=== PATIENT | female | born 1955 | race Caucasian/White ===

== ENCOUNTER 2019-02-02 13:00 | Emergency (ER) | payer MEDICAID ==
[~2019-02-02] VITALS: Ht 154.9 cm; Wt 50.0 kg
[~2019-02-02 13:00] MED LIST: ASPI-611 PO; ATOR20TA66 PO; CLON-371 PO; CLON-528 PO; CLOP75TA15 PO; LEVO75TA7 PO; LISI-600 PO; METO25TA6 PO; NICO1PAT36 TOP; NITR0.4T51 SL
[2019-02-02] MEDS ORDERED: CLOP75TA35 (13:38)
[2019-02-02] MEDS ORDERED: LISI40TA4 (13:38)
[2019-02-02] MEDS ORDERED: LEVO75TA7 PO (13:40)
[2019-02-02 14:15] LABS: BASOPHILS # (AUTO) 0.1 X10'3 (0-0.2); BASOPHILS % (AUTO) 1.1 % (0-1); EOSINOPHILS # (AUTO) 0.3 X10'3 (0-0.9); EOSINOPHILS % (AUTO) 4.3 % (0-6); HEMATOCRIT 41.3 % (35.0-45.0); HEMOGLOBIN 14.3 g/dl (12.0-16.0); LYMPHOCYTES # (AUTO) 2.1 X10'3 (1.1-4.8); LYMPHOCYTES % (AUTO) 25.9 % (21-51); MEAN CORPUSCULAR HEMOGLOBIN 34.9 PG (27.0-31.0); MEAN CORPUSCULAR HGB CONC 34.5 g/dL (33.0-36.5); MEAN CORPUSCULAR VOLUME 101.2 FL (78-98); MEAN PLATELET VOLUME 7.9 FL (7.4-10.4); MONOCYTES # (AUTO) 0.8 X10'3 (0-0.9); NEUTROPHILS # (AUTO) 4.7 X10'3 (1.8-7.7); NEUTROPHILS % (AUTO) 58.7 % (42-75); PLATELET COUNT 292 X10'3 (140-440); RED BLOOD COUNT 4.08 X10'6 (4.20-5.60); RED CELL DISTRIBUTION WIDTH 15.2 % (11.5-14.5)
[2019-02-02 14:29] LABS: ALANINE AMINOTRANSFERASE 47 U/L (12-78); ALBUMIN 3.5 G/DL (3.4-5.0); ALBUMIN/GLOBULIN RATIO 0.9 (1.1-1.5); ALKALINE PHOSPHATASE 98 IU/L (46-116); ANION GAP 9 (8-16); ASPARTATE AMINO TRANSFERASE 69 U/L (10-37); BILIRUBIN,TOTAL 0.4 MG/DL (0.1-1.0); BLOOD UREA NITROGEN 15 MG/DL (7-18); BUN/CREATININE RATIO 18.1 (6.6-38.0); CALCIUM 9.7 MG/DL (8.5-10.1); CHLORIDE 103 MMOL/L (99-107); CREATININE 0.83 MG/DL (0.40-0.90); GLUCOSE 85 MG/DL (70-104); MAGNESIUM 1.7 MG/DL (1.5-2.4); POTASSIUM 3.7 MMOL/L (3.5-5.1); SODIUM 142 MMOL/L (135-145); TOTAL CARBON DIOXIDE 29.9 MMOL/L (24-32); TOTAL PROTEIN 7.5 G/DL (6.4-8.2); eGFR 69 ML/MIN
[2019-02-02 14:32] LABS: PARTIAL THROMBOPLASTIN TIME 29 SECONDS (22-32)
--- NOTE | 2019-02-02 14:50 | NUR ---
Pt transported to CT scan via gurney with the side rails raised.
[2019-02-02] MEDS ORDERED: iohexol 350MG/ML 100ml bottle IV ONE (14:55)
[2019-02-02] MEDS ORDERED: iohexol 350 MG/ML 50ML vial IV ONE (14:56)
--- NOTE | 2019-02-02 17:19 | NUR ---
Pt's blood pressures and heart rate obtained in all four extremities. Dr. Snider given the results. Vascular is in route to the hospital to complete the vascular studies for the ankle brachial index. Pt is requesting something to help her calm down. Dr. Snider made aware of the patient's request.
--- NOTE | 2019-02-02 17:58 | NUR ---
Health Insurance Sales Agent is with the patient completing WAYNE testing. Pt is awaiting admission orders and further evaluation. Pt's blood pressure remains elevated and provider is aware.
[2019-02-02 19:59] VITALS: BP 199/106
== END 2019-02-02 20:03 | disposition home or self-care (01) ==
LOC: ER 13:00
DX: T82.858A Stenosis of other vascular prosthetic devices, implants and grafts, initial encounter (principal); I71.4 Abdominal aortic aneurysm, without rupture; M79.652 Pain in left thigh; I25.10 Atherosclerotic heart disease of native coronary artery without angina pectoris; I10 Essential (primary) hypertension; I25.2 Old myocardial infarction; Z98.61 Coronary angioplasty status; Z90.710 Acquired absence of both cervix and uterus; Z98.890 Other specified postprocedural states; Z88.0 Allergy status to penicillin; Z79.899 Other long term (current) drug therapy
CPT/HCPCS: 36415; 75635; 80053; 83735; 85025; 85610; 85730; 93922; 99285; Q9967

== ENCOUNTER 2019-04-16 06:41 | Day surgery (SDC) | payer MEDICARE ==
[2019-04-16] VITALS (9 sets, daily range): BP systolic 105–208; BP diastolic 59–119
[~2019-04-16] VITALS: Ht 157.5 cm; Wt 45.7 kg
[~2019-04-16 06:41] MED LIST changes: -ASPI-611 PO; -ATOR20TA66 PO; -CLON-371 PO; -CLON-528 PO; -CLOP75TA15 PO; +CLOP75TA35; -LISI-600 PO; +LISI40TA4; -METO25TA6 PO; -NICO1PAT36 TOP
[2019-04-16] MEDS ORDERED: LISI40TA4 PO (07:10)
[2019-04-16] MEDS ORDERED: CETI-90 PO (07:10)
[2019-04-16] MEDS ORDERED: METO25TA6 PO (07:10)
[2019-04-16] MEDS ORDERED: normal saline 1000ml 1,000 ML IV SCH ×2 (07:10→11:34)
[2019-04-16 07:46] LABS: BASOPHILS # (AUTO) 0.1 X10'3 (0-0.2); BASOPHILS % (AUTO) 1.3 % (0-1); EOSINOPHILS # (AUTO) 0.4 X10'3 (0-0.9); EOSINOPHILS % (AUTO) 4.5 % (0-6); HEMATOCRIT 39.9 % (35.0-45.0); HEMOGLOBIN 13.6 g/dl (12.0-16.0); LYMPHOCYTES # (AUTO) 1.8 X10'3 (1.1-4.8); LYMPHOCYTES % (AUTO) 21.4 % (21-51); MEAN CORPUSCULAR HEMOGLOBIN 35.2 PG (27.0-31.0); MEAN CORPUSCULAR VOLUME 103.5 FL (78-98); MEAN PLATELET VOLUME 7.8 FL (7.4-10.4); MONOCYTES % (AUTO) 11.5 % (2-12); NEUTROPHILS # (AUTO) 5.3 X10'3 (1.8-7.7); NEUTROPHILS % (AUTO) 61.3 % (42-75); PLATELET COUNT 285 X10'3 (140-440); RED BLOOD COUNT 3.85 X10'6 (4.20-5.60); RED CELL DISTRIBUTION WIDTH 15.6 % (11.5-14.5); WHITE BLOOD COUNT 8.6 X10'3 (4.5-11.0)
[2019-04-16 07:57] LABS: ALBUMIN 3.3 G/DL (3.4-5.0); ANION GAP 8 (8-16); BLOOD UREA NITROGEN 7 MG/DL (7-18); BUN/CREATININE RATIO 9.9 (6.6-38.0); CALCIUM 8.9 MG/DL (8.5-10.1); CHLORIDE 106 MMOL/L (99-107); CREATININE 0.71 MG/DL (0.40-0.90); GLUCOSE 70 MG/DL (70-104); SODIUM 144 MMOL/L (135-145); TOTAL CARBON DIOXIDE 29.6 MMOL/L (24-32); eGFR 83 ML/MIN
[2019-04-16] MEDS ORDERED: LIDOcaine 1% (10mg/ml) 2ml vial SQ ONE (08:00)
[2019-04-16] MEDS ORDERED: midazolam 2 mg/2 ml injection IV PRN (08:00)
[2019-04-16] MEDS ORDERED: fentaNYL/PF 50MCG/1 ML 2ML syringe IV PRN (08:00)
[2019-04-16] MEDS ORDERED: potassium Cl 20 mEq SR tablet PO PRN (08:05)
[2019-04-16] MEDS ORDERED: potassium CL 10mEq/100ml bag 100 ML IV PRN (08:05)
[2019-04-16] MEDS ORDERED: hydrALAZINE 20mg/ml inj. IV ONE (08:05)
[2019-04-16] MEDS ORDERED: K and/or MAG REPLACEMENT MC SCH (08:05)
[2019-04-16] MEDS: potassium Cl 20 mEq SR tablet PO PRN ×2 (08:19→13:57)
[2019-04-16] MEDS ORDERED: iohexol 300mg/ml 100ml inj. ONE (08:45)
[2019-04-16] MEDS ORDERED: LIDOcaine 1%/PF 5ML 10 MG/ML VIAL ONE (08:45)
[2019-04-16] MEDS ORDERED: heparin 1,000 UNITS/NS 500ml 500 ML ONE ×2 (08:46→10:37)
[2019-04-16] MEDS ORDERED: LORazepam 2 mg/ml vial IV ONE ×2 (08:55)
[2019-04-16] MEDS ORDERED: diphenhydrAMINE 50 mg/ml inj ONE ×2 (08:57→09:11)
[2019-04-16] MEDS ORDERED: diphenhydrAMINE 50 mg/ml inj IV ONE (09:00)
[2019-04-16] MEDS ORDERED: morphine 2 MG/ML inj. syringe IV PRN (09:00)
[2019-04-16] MEDS ORDERED: morphine 2 MG/ML inj. syringe ONE ×3 (09:05→09:37)
[2019-04-16] MEDS ORDERED: midazolam 2 mg/2 ml injection ONE ×2 (09:25→09:38)
[2019-04-16] MEDS ORDERED: heparin 1,000unit/ml 10ml vial 10 ML ONE (09:48)
[2019-04-16] MEDS ORDERED: morphine 4 MG/ML inj SYRINge ONE (10:53)
== END 2019-04-16 14:25 | disposition home or self-care (01) ==
LOC: SSTAY O 06:41
PROVIDERS: ATTEND Radiology Vascular & Interventional Radiology
DX: I70.212 Atherosclerosis of native arteries of extremities with intermittent claudication, left leg (principal); I10 Essential (primary) hypertension; F17.210 Nicotine dependence, cigarettes, uncomplicated; Z88.0 Allergy status to penicillin; Z79.01 Long term (current) use of anticoagulants; Z79.899 Other long term (current) drug therapy; Z72.89 Other problems related to lifestyle; Z90.710 Acquired absence of both cervix and uterus; Z98.890 Other specified postprocedural states; Z82.49 Family history of ischemic heart disease and other diseases of the circulatory system
CPT/HCPCS: 36415; 37220; 80048; 85025; 85610; 99152; 99153; C1725; C1760; C1769; C1887; C1894; J0360; J1200; J1644; J2060; J2250; J2270; Q9967; A6213

== ENCOUNTER 2019-09-22 19:16 | Emergency (ER) | payer MEDICARE ==
[~2019-09-22] VITALS: Ht 157.5 cm; Wt 47.8 kg
[~2019-09-22 19:16] MED LIST changes: +CETI-90 PO; -LISI40TA4; +LISI40TA4 PO; +METO25TA6 PO
[2019-09-22 20:01] LABS: BASOPHILS # (AUTO) 0.1 X10'3 (0-0.2); BASOPHILS % (AUTO) 1.1 % (0-1); EOSINOPHILS # (AUTO) 0.1 X10'3 (0-0.9); EOSINOPHILS % (AUTO) 1.4 % (0-6); HEMATOCRIT 36.7 % (35.0-45.0); HEMOGLOBIN 12.5 g/dl (12.0-16.0); LYMPHOCYTES # (AUTO) 1.8 X10'3 (1.1-4.8); LYMPHOCYTES % (AUTO) 27.7 % (21-51); MEAN CORPUSCULAR HEMOGLOBIN 34.8 PG (27.0-31.0); MEAN CORPUSCULAR HGB CONC 34.1 g/dL (33.0-36.5); MEAN PLATELET VOLUME 7.9 FL (7.4-10.4); MONOCYTES # (AUTO) 0.6 X10'3 (0-0.9); MONOCYTES % (AUTO) 9.8 % (2-12); NEUTROPHILS # (AUTO) 3.8 X10'3 (1.8-7.7); PLATELET COUNT 185 X10'3 (140-440); RED BLOOD COUNT 3.59 X10'6 (4.20-5.60); RED CELL DISTRIBUTION WIDTH 15.5 % (11.5-14.5); WHITE BLOOD COUNT 6.3 X10'3 (4.5-11.0)
[2019-09-22] MEDS ORDERED: normal saline 1000ML IV soln IVB ONE ×2 (20:10)
[2019-09-22 20:12] LABS: ALANINE AMINOTRANSFERASE 315 U/L (12-78); ALBUMIN 3.3 G/DL (3.4-5.0); ALKALINE PHOSPHATASE 179 IU/L (46-116); ANION GAP 10 (8-16); ASPARTATE AMINO TRANSFERASE 623 U/L (10-37); BILIRUBIN,TOTAL 0.8 MG/DL (0.1-1.0); BLOOD UREA NITROGEN 8 MG/DL (7-18); BUN/CREATININE RATIO 11.6 (6.6-38.0); CALCIUM 8.8 MG/DL (8.5-10.1); CHLORIDE 100 MMOL/L (99-107); CREATININE 0.69 MG/DL (0.40-0.90); GLUCOSE 87 MG/DL (70-104); LIPASE 97 U/L (73-393); POTASSIUM 3.4 MMOL/L (3.5-5.1); SODIUM 136 MMOL/L (135-145); TOTAL CARBON DIOXIDE 26.5 MMOL/L (24-32); TOTAL PROTEIN 6.6 G/DL (6.4-8.2); eGFR 85 ML/MIN
[2019-09-22] MEDS ORDERED: ondansetron inj. 24 MG in normal saline 250ml IV soln 228 ML IV SCH (20:40)
[2019-09-22 20:49] LABS: CLARITY,URINE CLEAR (Clear); COLOR,URINE YELLOW (Yellow); GLUCOSE, URINE NEGATIVE (Neg); KETONES,URINE NEGATIVE (Neg); LEUKOCYTE ESTERASE ,URINE NEGATIVE (Neg); NITRITES, URINE NEGATIVE (Neg); OCCULT BLOOD,URINE TRACE-LYSED (Neg); PH,URINE 7.5 (4.8-8.0); PROTEIN,URINE NEGATIVE (Neg)
[2019-09-22] MEDS ORDERED: ondansetron/PF 4mg/2ml inj IV ONE (20:55)
[2019-09-22] MEDS ORDERED: enalaprilat dihydrate 2.5mg/2ml vial IV ONE (20:55)
[2019-09-22 20:57] LABS: UA COLLECTION TYPE CLN CATCH MIDSTREAM
[2019-09-22 20:59] LABS: BACTERIA,URINE 1+ /HPF (Neg); RBC,URINE 0-2 /HPF (0-2); SQUAMOUS EPITHELIAL CELL,UR MODERATE /LPF (FEW); WBC,URINE 0-4 /HPF (0-4)
[2019-09-22] MEDS ORDERED: LORazepam 2 mg/ml vial IV ONE ×2 (21:50→22:10)
[2019-09-22] MEDS ORDERED: chlordiazePOXIDE 25mg capsule PO ONE (21:50)
--- NOTE | 2019-09-22 21:52 | NUR ---
pt admitted to ETOH withdrawls. She stated she normally consumes 6 -12 oz of vodka everynight. Dr Means is aware new orders to follow
[2019-09-22] MEDS ORDERED: CLON-529 PO (22:14)
[2019-09-22] MEDS ORDERED: CHLO25CA10 PO (22:14)
[2019-09-22] MEDS ORDERED: GABA-534 PO (22:14)
[2019-09-22] MEDS ORDERED: SUCR1TAB34 PO (22:14)
[2019-09-22] MEDS ORDERED: ONDA8TAB6 PO (22:14)
[2019-09-22 22:35] VITALS: BP 177/122
== END 2019-09-22 22:37 | disposition home or self-care (01) ==
LOC: ER 19:18
DX: K29.20 Alcoholic gastritis without bleeding (principal); R11.2 Nausea with vomiting, unspecified; K70.10 Alcoholic hepatitis without ascites; I10 Essential (primary) hypertension; I25.2 Old myocardial infarction; Z98.61 Coronary angioplasty status; Z90.710 Acquired absence of both cervix and uterus; Z98.890 Other specified postprocedural states; Z88.0 Allergy status to penicillin; Z79.899 Other long term (current) drug therapy
CPT/HCPCS: 36415; 80053; 81001; 83690; 85025; 93005; 96361; 96374; 96375; 96376; 99284; J2060; J2405; J7030

== ENCOUNTER 2019-09-25 07:32 | Emergency (ER) | payer MEDICARE ==
[~2019-09-25] VITALS: Ht 157.5 cm; Wt 45.0 kg
[~2019-09-25 07:32] MED LIST changes: +CHLO25CA10 PO; +CLON-529 PO; +GABA-534 PO; +ONDA8TAB6 PO; +SUCR1TAB34 PO
[2019-09-25] MEDS ORDERED: normal saline 1000ML IV soln IVB ONE (07:45)
[2019-09-25 08:02] LABS: CLARITY,URINE CLEAR (Clear); COLOR,URINE YELLOW (Yellow); GLUCOSE, URINE NEGATIVE (Neg); KETONES,URINE NEGATIVE (Neg); LEUKOCYTE ESTERASE ,URINE NEGATIVE (Neg); NITRITES, URINE NEGATIVE (Neg); OCCULT BLOOD,URINE NEGATIVE (Neg); PH,URINE 8.5 (4.8-8.0); PROTEIN,URINE NEGATIVE (Neg)
[2019-09-25 08:06] LABS: UA COLLECTION TYPE CLN CATCH MIDSTREAM
--- NOTE | 2019-09-25 08:24 | NUR ---
EKG 5096 LS
[2019-09-25 08:36] LABS: BASOPHILS % (AUTO) 0.7 % (0-1); EOSINOPHILS # (AUTO) 0.2 X10'3 (0-0.9); EOSINOPHILS % (AUTO) 2.8 % (0-6); HEMATOCRIT 31.4 % (35.0-45.0); HEMOGLOBIN 10.7 g/dl (12.0-16.0); LYMPHOCYTES # (AUTO) 1.4 X10'3 (1.1-4.8); LYMPHOCYTES % (AUTO) 21.9 % (21-51); MEAN CORPUSCULAR HGB CONC 34.2 g/dL (33.0-36.5); MEAN CORPUSCULAR VOLUME 105.3 FL (78-98); MEAN PLATELET VOLUME 8.5 FL (7.4-10.4); MONOCYTES # (AUTO) 0.6 X10'3 (0-0.9); MONOCYTES % (AUTO) 9.3 % (2-12); NEUTROPHILS % (AUTO) 65.3 % (42-75); PLATELET COUNT 150 X10'3 (140-440); RED BLOOD COUNT 2.98 X10'6 (4.20-5.60); RED CELL DISTRIBUTION WIDTH 15.4 % (11.5-14.5); WHITE BLOOD COUNT 6.2 X10'3 (4.5-11.0)
[2019-09-25 08:49] LABS: ALANINE AMINOTRANSFERASE 155 U/L (12-78); ALBUMIN 2.5 G/DL (3.4-5.0); ALBUMIN/GLOBULIN RATIO 0.8 (1.1-1.5); ALKALINE PHOSPHATASE 137 IU/L (46-116); ANION GAP 3 (8-16); ASPARTATE AMINO TRANSFERASE 136 U/L (10-37); BILIRUBIN,TOTAL 0.8 MG/DL (0.1-1.0); BLOOD UREA NITROGEN 11 MG/DL (7-18); BUN/CREATININE RATIO 13.8 (6.6-38.0); CALCIUM 8.7 MG/DL (8.5-10.1); CHLORIDE 104 MMOL/L (99-107); GLUCOSE 99 MG/DL (70-104); MAGNESIUM 1.3 MG/DL (1.5-2.4); POTASSIUM 3.7 MMOL/L (3.5-5.1); SODIUM 138 MMOL/L (135-145); TOTAL CARBON DIOXIDE 31.4 MMOL/L (24-32); TOTAL PROTEIN 5.6 G/DL (6.4-8.2); eGFR 72 ML/MIN
[2019-09-25 09:05] LABS: ETHANOL < 0.010 GM/DL (0.0-0.010)
[2019-09-25] MEDS ORDERED: thiamine 100mg/ml 2ml inj. IV ONE (12:00)
[2019-09-25] MEDS ORDERED: folic acid 1mg/0.2ml inj IV ONE (12:00)
[2019-09-25] MEDS ORDERED: CHLO25CA10 PO (12:01)
[2019-09-25 12:33] VITALS: BP 118/76
== END 2019-09-25 12:05 | disposition home or self-care (01) ==
LOC: ER 07:32
DX: F10.239 Alcohol dependence with withdrawal, unspecified (principal); R11.2 Nausea with vomiting, unspecified; I10 Essential (primary) hypertension; I25.2 Old myocardial infarction; Z98.61 Coronary angioplasty status; Z90.710 Acquired absence of both cervix and uterus; Z98.890 Other specified postprocedural states; Z88.0 Allergy status to penicillin; Z79.899 Other long term (current) drug therapy; Y90.0 Blood alcohol level of less than 20 mg/100 ml
CPT/HCPCS: 70450; 71045; 80053; 80320; 81003; 83735; 85025; 93005; 96361; 96374; 96375; 99285; J3411; J3490; J7030

== ENCOUNTER 2020-12-22 20:54 | Inpatient (IN) | payer BC, MEDICARE ==
[~2020-12-22] VITALS: Ht 157.5 cm; Wt 55.1 kg
[~2020-12-22 20:54] MED LIST changes: +CLOP75TA34 PO; -CLOP75TA35; +LISI40TA13 PO; -LISI40TA4 PO; +LOP25T PO; -METO25TA6 PO
--- NOTE | 2020-12-22 21:38 | NUR ---
Dr Downs at triage to evaluate pt, pt is poor historian, he gave verbal order for stroke protocol
[2020-12-22 21:57] LABS: BASOPHILS # (AUTO) 0.1 X10'3 (0-0.2); BASOPHILS % (AUTO) 0.7 % (0-1); EOSINOPHILS % (AUTO) 0.2 % (0-6); HEMATOCRIT 50.6 % (35.0-45.0); HEMOGLOBIN 16.8 g/dl (12.0-16.0); LYMPHOCYTES # (AUTO) 1.9 X10'3 (1.1-4.8); LYMPHOCYTES % (AUTO) 9.8 % (21-51); MEAN CORPUSCULAR HEMOGLOBIN 31.7 PG (27.0-31.0); MEAN CORPUSCULAR HGB CONC 33.2 g/dL (33.0-36.5); MEAN CORPUSCULAR VOLUME 95.4 FL (78-98); MEAN PLATELET VOLUME 7.7 FL (7.4-10.4); MONOCYTES # (AUTO) 2.2 X10'3 (0-0.9); MONOCYTES % (AUTO) 11.2 % (2-12); NEUTROPHILS # (AUTO) 15.5 X10'3 (1.8-7.7); NEUTROPHILS % (AUTO) 78.1 % (42-75); PLATELET COUNT 300 X10'3 (140-440); RED CELL DISTRIBUTION WIDTH 16.8 % (11.5-14.5); WHITE BLOOD COUNT 19.8 X10'3 (4.5-11.0)
[2020-12-22 22:12] LABS: PARTIAL THROMBOPLASTIN TIME 31 SECONDS (22-32)
[2020-12-22 22:14] LABS: ALANINE AMINOTRANSFERASE 12 U/L (12-78); ALBUMIN 3.5 G/DL (3.4-5.0); ALBUMIN/GLOBULIN RATIO 0.8 (1.1-1.5); ALKALINE PHOSPHATASE 115 IU/L (46-116); ANION GAP 11 (8-16); ASPARTATE AMINO TRANSFERASE 19 U/L (10-37); BILIRUBIN,TOTAL 0.7 MG/DL (0.1-1.0); BLOOD UREA NITROGEN 26 MG/DL (7-18); CALCIUM 9.7 MG/DL (8.5-10.1); CHLORIDE 97 MMOL/L (99-107); CREATININE 2.17 MG/DL (0.40-0.90); GLUCOSE 109 MG/DL (70-104); POTASSIUM 3.5 MMOL/L (3.5-5.1); SODIUM 135 MMOL/L (135-145); TOTAL CARBON DIOXIDE 27.3 MMOL/L (24-32); TOTAL PROTEIN 7.9 G/DL (6.4-8.2); eGFR 23 ML/MIN
[2020-12-22 22:17] LABS: PLATELET ESTIMATE NORMAL; TOTAL CELLS COUNTED 100
[2020-12-22 22:18] LABS: ANISOCYTOSIS 1+
[2020-12-22 22:35] LABS: TROPONIN I 0.69 NG/ML (0.0-0.05)
--- NOTE | 2020-12-22 23:39 | NUR ---
TOOK REPORT FROM NOW
[2020-12-22] MEDS ORDERED: normal saline 1000ML IV soln IVB ONE (23:55)
[2020-12-22] MEDS ORDERED: nitroGLYCERIN 0.2mg/hour patch TD ONE (23:55)
[2020-12-22] MEDS ORDERED: aspirin 81mg tab.chew PO ONE (23:55)
[2020-12-23] VITALS (7 sets, daily range): BP systolic 122–158; BP diastolic 77–97
[2020-12-23] MEDS ORDERED: thiamine 100mg tablet PO ONE
[2020-12-23] MEDS ORDERED: magnesium 2GM in 50ml NS 50 ML IV ONE
[2020-12-23] MEDS ORDERED: folic acid 1mg tablet PO ONE
[2020-12-23 00:34] LABS: LIPASE < 50 U/L (73-393)
[2020-12-23 00:40] LABS: ETHANOL < 0.010 GM/DL (0.0-0.010)
[2020-12-23] MEDS ORDERED: HYDROcodone/acetaminophen 10/325mg tab PO PRN (00:50)
[2020-12-23] MEDS ORDERED: ondansetron/PF 4mg/2ml inj IV PRN (00:50)
[2020-12-23] MEDS ORDERED: diphenhydrAMINE 25mg capsule PO PRN (00:50)
[2020-12-23] MEDS ORDERED: acetaminophen 650mg rectal suppository RC PRN (00:50)
[2020-12-23] MEDS ORDERED: HYDROcodone/acetaminophen 5mg/325mg tablet PO PRN (00:50)
[2020-12-23] MEDS ORDERED: diphenhydrAMINE 50 mg/ml inj IV PRN (00:50)
[2020-12-23] MEDS ORDERED: magnesium hydroxide 30ml (MOM) UD suspension PO PRN (00:50)
[2020-12-23] MEDS ORDERED: acetaminophen 325mg tablet PO PRN (00:50)
[2020-12-23] MEDS ORDERED: morphine 2 MG/ML inj. syringe IV PRN ×2 (00:50)
[2020-12-23] MEDS ORDERED: bisacodyl 10mg suppository rectal RC PRN (00:50)
[2020-12-23] MEDS ORDERED: ondansetron 4mg rapidly disintigrating tab PO PRN (00:50)
[2020-12-23] MEDS ORDERED: mag hydrox/Alum hydrox/simeth 30ml oral suspension PO PRN (00:50)
[2020-12-23] MEDS ORDERED: haloperidol 5mg tablet PO PRN (00:55)
[2020-12-23] MEDS ORDERED: LORazepam 2 mg/ml vial IV PRN (00:55)
[2020-12-23] MEDS ORDERED: LORazepam 1 MG tablet PO PRN (00:55)
[2020-12-23] MEDS ORDERED: dextrose 50%-water 50ml dispensing syringe IV PRN (00:55)
[2020-12-23] MEDS ORDERED: haloperidol lactate 5mg/ml inj IM PRN (00:55)
[2020-12-23] MEDS: normal saline 1000ml 1,000 ML IV SCH ×2 (00:56→20:56)
[2020-12-23 02:46] LABS: PHOSPHORUS 3.8 MG/DL (2.3-4.5)
[2020-12-23] MEDS: pantoprazole 40mg Tablet.DR PO SCH (07:48)
[2020-12-23] MEDS: docusate sod 100mg capsule PO SCH ×2 (07:50→20:41)
[2020-12-23 08:23] LABS: URINE AMPHETAMINE SCREEN NEGATIVE (Neg); URINE BARBITUATE SCREEN NEGATIVE (Neg); URINE BENZODIAZEPINES SCREEN NEGATIVE (Neg); URINE CANNABINOID SCREEN NEGATIVE (Neg); URINE COCAINE SCREEN NEGATIVE (Neg); URINE METHADONE SCREEN NEGATIVE (Neg); URINE OPIATE SCREEN NEGATIVE (Neg); URINE PHENCYCLIDINE SCREEN NEGATIVE (Neg)
[2020-12-23 08:53] LABS: CLARITY,URINE SLIGHTLY CLOUDY (Clear); COLOR,URINE YELLOW (Yellow); GLUCOSE, URINE NEGATIVE (Neg); KETONES,URINE NEGATIVE (Neg); PROTEIN,URINE TRACE mg/dl (Neg); UA COLLECTION TYPE NON-SPECIFIED
[2020-12-23 08:54] LABS: LEUKOCYTE ESTERASE ,URINE NEGATIVE (Neg); NITRITES, URINE NEGATIVE (Neg); OCCULT BLOOD,URINE NEGATIVE (Neg); UROBILINOGEN,URINE 0.2 E.U/dL (0.2-1.0)
[2020-12-23 09:03] LABS: BACTERIA,URINE FEW /HPF (Neg); MUCUS STRANDS FEW /LPF (Neg); RBC,URINE 0-2 /HPF (0-2); WBC,URINE 0-4 /HPF (0-4)
[2020-12-23 09:04] LABS: CAL OXALATE CRYSTALS 1+ /HPF (NEGATIVE); FINE GRANULAR CAST 0-3 /LPF (NEGATIVE); SQUAMOUS EPITHELIAL CELL,UR MODERATE /LPF (FEW)
[2020-12-23] MEDS ORDERED: PERFLUTREN PROTEIN-A MICROSPHR (Optison) 0.22 MG/ML 3ML VIAL IV ONE (11:30)
[2020-12-23] MEDS: levoFLOXACIN-Levaquin 750MG/D5 150 ML IV SCH (12:01)
[2020-12-23] MEDS: thiamine 100mg tablet PO SCH (12:02)
[2020-12-23] MEDS: folic acid 1mg tablet PO SCH (12:02)
[2020-12-23] MEDS: aspirin 81mg, enteric-coated 1 TAB TABLET.DR PO SCH (12:02)
[2020-12-23] MEDS: heparin, porcine 5000 units/ml vial SQ SCH ×2 (12:03→20:48)
[2020-12-23] MEDS: multivitamins, therapeutics tablet PO SCH (12:05)
[2020-12-23 12:36] LABS: BASOPHILS # (AUTO) 0.1 X10'3 (0-0.2); BASOPHILS % (AUTO) 0.5 % (0-1); EOSINOPHILS # (AUTO) 0.2 X10'3 (0-0.9); EOSINOPHILS % (AUTO) 1.9 % (0-6); HEMOGLOBIN 15.5 g/dl (12.0-16.0); LYMPHOCYTES # (AUTO) 1.9 X10'3 (1.1-4.8); LYMPHOCYTES % (AUTO) 14.2 % (21-51); MEAN CORPUSCULAR HEMOGLOBIN 32.1 PG (27.0-31.0); MEAN CORPUSCULAR HGB CONC 33.6 g/dL (33.0-36.5); MEAN CORPUSCULAR VOLUME 95.4 FL (78-98); MEAN PLATELET VOLUME 7.4 FL (7.4-10.4); MONOCYTES # (AUTO) 1.3 X10'3 (0-0.9); MONOCYTES % (AUTO) 10.2 % (2-12); NEUTROPHILS # (AUTO) 9.6 X10'3 (1.8-7.7); NEUTROPHILS % (AUTO) 73.2 % (42-75); PLATELET COUNT 207 X10'3 (140-440); RED BLOOD COUNT 4.83 X10'6 (4.20-5.60); RED CELL DISTRIBUTION WIDTH 16.8 % (11.5-14.5); WHITE BLOOD COUNT 13.1 X10'3 (4.5-11.0)
[2020-12-23 12:44] LABS: ALANINE AMINOTRANSFERASE 12 U/L (12-78); ALBUMIN 2.6 G/DL (3.4-5.0); ALBUMIN/GLOBULIN RATIO 0.7 (1.1-1.5); ALKALINE PHOSPHATASE 87 IU/L (46-116); ANION GAP 9 (8-16); ASPARTATE AMINO TRANSFERASE 26 U/L (10-37); BILIRUBIN,TOTAL 0.8 MG/DL (0.1-1.0); BLOOD UREA NITROGEN 25 MG/DL (7-18); BUN/CREATININE RATIO 15.8 (6.6-38.0); CALCIUM 8.6 MG/DL (8.5-10.1); CHLORIDE 102 MMOL/L (99-107); CREATININE 1.58 MG/DL (0.40-0.90); GLUCOSE 111 MG/DL (70-104); POTASSIUM 3.3 MMOL/L (3.5-5.1); SODIUM 135 MMOL/L (135-145); TOTAL CARBON DIOXIDE 23.8 MMOL/L (24-32); TOTAL PROTEIN 6.2 G/DL (6.4-8.2); eGFR 33 ML/MIN
[2020-12-23] MEDS ORDERED: LEVO150T8 PO (13:00)
[2020-12-23] MEDS ORDERED: ROSU5TAB12 PO (13:01)
--- NOTE | 2020-12-23 13:30 | NUR ---
relieving RN for break, pt is sitting up in bed, eating lunch, rosalinda well, no n/v
[2020-12-23] MEDS: clopidogrel 75mg tablet PO SCH (13:35)
[2020-12-23] MEDS ORDERED: nitroGLYCERIN 0.4mg SUBLingual tab SL PRN (13:35)
[2020-12-23] MEDS: atorvastatin 20mg tablet PO SCH (13:43)
--- NOTE | 2020-12-23 13:52 | NUR ---
report called to Beverly Parker
[2020-12-23] MEDS: lactobacillus rhamnosus 10,000 MMU CELLS/CAPSULE PO SCH (20:41)
[2020-12-23] MEDS: lisinopril 20mg tablet PO SCH (20:45)
[2020-12-23] MEDS ORDERED: temazepam 15mg capsule PO PRN (21:00)
--- NOTE | 2020-12-23 22:09 | NUR ---
Received patient to room 3025B, patient is alert and oriented in no apparent acute distress, denies chest pain or discomfort at this time oriented to room , call light placed within reach, bed in lower position and locked will continue to monitor and report changes
[2020-12-24 02:00] VITALS: BP 186/96
[2020-12-24] MEDS: normal saline 1000ml 1,000 ML IV SCH ×2 (05:20→17:18)
[2020-12-24 06:00] VITALS: BP 186/90
[2020-12-24 06:07] LABS: BASOPHILS # (AUTO) 0.1 X10'3 (0-0.2); BASOPHILS % (AUTO) 0.6 % (0-1); EOSINOPHILS # (AUTO) 0.2 X10'3 (0-0.9); EOSINOPHILS % (AUTO) 1.9 % (0-6); HEMATOCRIT 43.3 % (35.0-45.0); HEMOGLOBIN 14.7 g/dl (12.0-16.0); LYMPHOCYTES # (AUTO) 1.7 X10'3 (1.1-4.8); LYMPHOCYTES % (AUTO) 15.2 % (21-51); MEAN CORPUSCULAR HEMOGLOBIN 32.2 PG (27.0-31.0); MEAN CORPUSCULAR HGB CONC 33.9 g/dL (33.0-36.5); MEAN CORPUSCULAR VOLUME 94.8 FL (78-98); MEAN PLATELET VOLUME 8.1 FL (7.4-10.4); MONOCYTES # (AUTO) 1.2 X10'3 (0-0.9); MONOCYTES % (AUTO) 10.8 % (2-12); NEUTROPHILS # (AUTO) 8.2 X10'3 (1.8-7.7); NEUTROPHILS % (AUTO) 71.5 % (42-75); PLATELET COUNT 224 X10'3 (140-440); RED BLOOD COUNT 4.56 X10'6 (4.20-5.60); RED CELL DISTRIBUTION WIDTH 16.2 % (11.5-14.5); WHITE BLOOD COUNT 11.4 X10'3 (4.5-11.0)
--- NOTE | 2020-12-24 06:20 | NUR ---
Problems reprioritized. Patient report given, questions answered & plan of care reviewed with Jh SORENSEN.
[2020-12-24 06:25] LABS: ALANINE AMINOTRANSFERASE 14 U/L (12-78); ALBUMIN 2.5 G/DL (3.4-5.0); ALBUMIN/GLOBULIN RATIO 0.7 (1.1-1.5); ALKALINE PHOSPHATASE 76 IU/L (46-116); ANION GAP 5 (8-16); ASPARTATE AMINO TRANSFERASE 23 U/L (10-37); BILIRUBIN,TOTAL 0.6 MG/DL (0.1-1.0); BLOOD UREA NITROGEN 20 MG/DL (7-18); BUN/CREATININE RATIO 16.5 (6.6-38.0); CALCIUM 8.7 MG/DL (8.5-10.1); CHLORIDE 103 MMOL/L (99-107); CREATININE 1.21 MG/DL (0.40-0.90); GLUCOSE 84 MG/DL (70-104); POTASSIUM 3.1 MMOL/L (3.5-5.1); SODIUM 133 MMOL/L (135-145); TOTAL CARBON DIOXIDE 24.8 MMOL/L (24-32); TOTAL PROTEIN 5.9 G/DL (6.4-8.2); eGFR 44 ML/MIN
--- NOTE | 2020-12-24 07:40 | NUR ---
AGER ID: [phone] MESSAGE: [id number] Kia Frankel IS 3.1. NO REPLACEMENT ORDERS YET. [id number]
[2020-12-24] MEDS: docusate sod 100mg capsule PO SCH ×2 (08:00→20:00)
[2020-12-24] MEDS ORDERED: potassium Cl 20 mEq SR tablet PO PRN (09:00)
[2020-12-24] MEDS ORDERED: magnesium Cl slow-release 64mg tablet PO PRN (09:00)
[2020-12-24] MEDS ORDERED: magnesium 4gm in 100ml NS 100 ML IV PRN (09:00)
[2020-12-24] MEDS ORDERED: potassium Cl 40MEQ/1/2NS 520ml 520 ML IV PRN (09:00)
[2020-12-24] MEDS: lactobacillus rhamnosus 10,000 MMU CELLS/CAPSULE PO SCH ×2 (09:12→20:16)
[2020-12-24] MEDS: pantoprazole 40mg Tablet.DR PO SCH (09:12)
[2020-12-24] MEDS: multivitamins, therapeutics tablet PO SCH (09:12)
[2020-12-24] MEDS: potassium Cl 20 mEq SR tablet PO PRN ×3 (09:12→17:17)
[2020-12-24] MEDS: levoTHYROXINE 75mcg tablet PO SCH (09:13)
[2020-12-24] MEDS: folic acid 1mg tablet PO SCH (09:13)
[2020-12-24] MEDS: aspirin 81mg, enteric-coated 1 TAB TABLET.DR PO SCH (09:13)
[2020-12-24] MEDS: thiamine 100mg tablet PO SCH (09:13)
[2020-12-24] MEDS: clopidogrel 75mg tablet PO SCH (09:13)
[2020-12-24] MEDS: lisinopril 20mg tablet PO SCH ×2 (09:14→20:18)
[2020-12-24] MEDS: heparin, porcine 5000 units/ml vial SQ SCH ×2 (09:15→20:18)
[2020-12-24] MEDS: atorvastatin 20mg tablet PO SCH (10:03)
[2020-12-24] MEDS ORDERED: METO-395 PO (10:47)
[2020-12-24 11:00] VITALS: BP 167/94
[2020-12-24 11:29] LABS: TROPONIN I 0.73 NG/ML (0.0-0.05)
--- NOTE | 2020-12-24 12:04 | NUR ---
PAGER ID: [phone] MESSAGE: [id number] priyank woodard- is cardiology going to see this patient? JhRPreet [phone]
[2020-12-24] MEDS ORDERED: nitroGLYCERIN 0.4mg SUBLingual tab SL PRN (12:45)
[2020-12-24] MEDS ORDERED: regadenoson 0.4mg/5ml syringe IV ONE (12:45)
[2020-12-24] MEDS ORDERED: aminophylline 250mg/10ml inj. IV PRN (12:45)
[2020-12-24] MEDS ORDERED: metoprolol tartrate 1mg/ml inj IV PRN (12:45)
--- NOTE | 2020-12-24 13:12 | NUR ---
1300- spoke to md perez extensively on pt. she does not have a ndt inspector that she is aware, plavix prescribed by her primary md. ecg not done, one ordered stat, magnoliay c/p , trops trending down see labs, nuc med ordered but pt has eaten meal just before order input., wants PT to rylee longp, explained npo after mn to pt and she is agreeable- she is concerned about her r ear and her legs giving out. Addendum: 12/24/20 at 1317 by Jh Richards RN addressed question of ndt inspector consult but md perez declined at that time. discharge has been suspended
--- NOTE | 2020-12-24 13:22 | NUR ---
PAGER ID: [phone] MESSAGE: [phone] Kelsi Meng- pt also c/o ear ache that started 12/21. Physical therapy says they will eval. Also, Nuc med scheduled for AM. Jh SORENSEN [phone]
[2020-12-24 13:44] LABS: CHOL/HDL RATIO 4.5 (0.00-4.99); CHOLESTEROL 179 MG/DL (0-200); HDL CHOLESTEROL 40 MG/DL (35-60); LDL CHOLESTEROL 108 MG/DL (50-100); TRIGLYCERIDES 153 MG/DL (20-135)
[2020-12-24 15:00] VITALS: BP 170/94
--- NOTE | 2020-12-24 17:30 | NUR ---
pt cont to deny c/p , she says she thinks she has an ear ache which md perez was notified about. repositioned self i t/o shift and sets up to dangle i
[2020-12-24 18:00] VITALS: BP 188/99
--- NOTE | 2020-12-24 18:30 | NUR ---
Problems reprioritized. Patient report given, questions answered & plan of care reviewed with Alley RN.
[2020-12-24] MEDS ORDERED: K and/or MAG REPLACEMENT MC SCH (20:00)
[2020-12-24] MEDS: metoprolol tartrate 12.5mg (1/2 tablet) PO SCH (20:17)
[2020-12-24 22:00] VITALS: BP_SYST 172; BP_SYST 180; BP_DIAS 80; BP_DIAS 90
[2020-12-25] VITALS (19 sets, daily range): BP systolic 112–194; BP diastolic 59–105
[2020-12-25] MEDS: normal saline 1000ml 1,000 ML IV SCH (01:20)
--- NOTE | 2020-12-25 02:41 | NUR ---
Josette KEMP regarding patient BP of 191/105. Ordered hydralazine 25 mg q6 PRN for SBP > 160.
[2020-12-25] MEDS ORDERED: hydrALAZINE 25 MG tablet PO PRN (02:53)
--- NOTE | 2020-12-25 05:15 | NUR ---
Patient in bed resting at this time. No signs of distress noted. No C/O pain. Patient had elevated BP throughout shift. MD aware. PRN medication administered per order. Patient NPO since midnight for testing today. Patient aware of plan of care. Call light and personal belongings placed within reach. Patient instructed to call for assistance.
[2020-12-25 07:12] LABS: BASOPHILS % (AUTO) 0.4 % (0-1); EOSINOPHILS # (AUTO) 0.2 X10'3 (0-0.9); EOSINOPHILS % (AUTO) 1.6 % (0-6); HEMOGLOBIN 14.3 g/dl (12.0-16.0); LYMPHOCYTES # (AUTO) 1.5 X10'3 (1.1-4.8); LYMPHOCYTES % (AUTO) 14.4 % (21-51); MEAN CORPUSCULAR HEMOGLOBIN 32.5 PG (27.0-31.0); MEAN CORPUSCULAR VOLUME 95.6 FL (78-98); MEAN PLATELET VOLUME 8.3 FL (7.4-10.4); MONOCYTES # (AUTO) 1.5 X10'3 (0-0.9); MONOCYTES % (AUTO) 14.4 % (2-12); NEUTROPHILS # (AUTO) 7.3 X10'3 (1.8-7.7); NEUTROPHILS % (AUTO) 69.2 % (42-75); PLATELET COUNT 233 X10'3 (140-440); RED CELL DISTRIBUTION WIDTH 16.7 % (11.5-14.5); WHITE BLOOD COUNT 10.5 X10'3 (4.5-11.0)
[2020-12-25] MEDS: multivitamins, therapeutics tablet PO SCH (07:26)
[2020-12-25] MEDS: clopidogrel 75mg tablet PO SCH (07:26)
[2020-12-25] MEDS: thiamine 100mg tablet PO SCH (07:26)
[2020-12-25] MEDS: levoTHYROXINE 75mcg tablet PO SCH (07:26)
[2020-12-25] MEDS: folic acid 1mg tablet PO SCH (07:26)
[2020-12-25] MEDS: lactobacillus rhamnosus 10,000 MMU CELLS/CAPSULE PO SCH (07:26)
[2020-12-25] MEDS: aspirin 81mg, enteric-coated 1 TAB TABLET.DR PO SCH (07:27)
[2020-12-25] MEDS: heparin, porcine 5000 units/ml vial SQ SCH (07:28)
--- NOTE | 2020-12-25 07:32 | NUR ---
promotional table spacer PAGER ID: [phone] MESSAGE: [id number] Marissa priyank sbp 196. she received prn po hydralazine at 0319. jersey is pending around 0800. please advise. cristina [phone]
[2020-12-25] MEDS: pantoprazole 40mg Tablet.DR PO SCH (07:35)
[2020-12-25] MEDS: levoFLOXACIN-Levaquin 750MG/D5 150 ML IV SCH (07:38)
--- NOTE | 2020-12-25 07:43 | NUR ---
PAGER ID: [phone] MESSAGE: [phone] priyank Meng- please call regarding bp and jersey ryan rn [phone]
[2020-12-25 07:44] LABS: ALANINE AMINOTRANSFERASE 11 U/L (12-78); ALBUMIN 2.6 G/DL (3.4-5.0); ALBUMIN/GLOBULIN RATIO 0.7 (1.1-1.5); ALKALINE PHOSPHATASE 77 IU/L (46-116); ANION GAP 8 (8-16); ASPARTATE AMINO TRANSFERASE 16 U/L (10-37); BILIRUBIN,TOTAL 0.6 MG/DL (0.1-1.0); BLOOD UREA NITROGEN 13 MG/DL (7-18); BUN/CREATININE RATIO 14.9 (6.6-38.0); CALCIUM 8.9 MG/DL (8.5-10.1); CHLORIDE 107 MMOL/L (99-107); CREATININE 0.87 MG/DL (0.40-0.90); GLUCOSE 85 MG/DL (70-104); POTASSIUM 3.7 MMOL/L (3.5-5.1); SODIUM 140 MMOL/L (135-145); TOTAL CARBON DIOXIDE 24.8 MMOL/L (24-32); TOTAL PROTEIN 6.3 G/DL (6.4-8.2); eGFR 65 ML/MIN
[2020-12-25] MEDS ORDERED: atorvastatin 20mg tablet PO SCH (08:00)
[2020-12-25] MEDS: docusate sod 100mg capsule PO SCH (08:00)
[2020-12-25] MEDS ORDERED: hydrALAZINE 20mg/ml inj. IV STA (08:09)
[2020-12-25] MEDS ORDERED: hydrALAZINE 20mg/ml inj. IV ONE (08:10)
--- NOTE | 2020-12-25 08:13 | NUR ---
1809- received call back from MD Walsh, orders received to input
--- NOTE | 2020-12-25 08:34 | NUR ---
pt sbp 144 -150 without medication. held stat hydralazine. notified kristen in nuc med of vss reassessment. they will inject shortly.
[2020-12-25] MEDS: lisinopril 20mg tablet PO SCH (11:58)
[2020-12-25] MEDS: metoprolol tartrate 12.5mg (1/2 tablet) PO SCH (11:58)
--- NOTE | 2020-12-25 14:44 | NUR ---
PAGER ID: [phone] MESSAGE: [id number] MEHRDADSAIDAKristen RODRÍGUEZ COMPLETE. REPORT OF REVERSIBLE ISCHEMIA. PT SAYS SHE IS AGREEABLE TO HEART CATH AND I SEE A DISCHARGE ORDER. WHATS THE PLAN. [id number] md Kenny REPLIED SHORTLY AFTER THIS PAGE. SHE REPORTS CARDIOLOGY WAS CONSULTED REGARDING THE FINDINGS OF THE NUC MED SCAN AND SAYS "THE CAN FILLER CLEARED HER FOR DISCHARGE, NO CATH NEEDED."
--- NOTE | 2020-12-25 14:59 | NUR ---
PAGER ID: [phone] MESSAGE: [phone]- JULIO CRONIN- WERE YOU PLANNING TO INFORM PT THAT CARDIOLOGY CLEARED HER ANNE? [id number] md Kenny CALLED BACK AND SPOKE TO PT OVER THE PHONE INFORMING HER OF CLEAR FOR DISCHARGE.
--- NOTE | 2020-12-25 15:15 | NUR ---
REVIEWED DISCHARG EMEDICATIONS AND DISCHARGE INSTRUCTIONS, PT TO FOLLOW UP WITH PRIMARY IN 2 WKS. IV OUT, CATH INTACT, TELE REMOVED, DRESSING SELF I. HAD BM TODAY. RIDE TO ARRIVE AND CALL UP.
--- NOTE | 2020-12-25 16:09 | NUR ---
PT TO CAR VIA W/C BY ENDER WHILE I WAS ON LUNCH. ALL PT'S BELONGINGS GATHERED PRIOR AND DISCH PAPERS WERE DISCUSSED PRIOR.
== END 2020-12-25 16:00 | disposition home or self-care (01) | DRG 682 ==
LOC: ER 20:55 → ED HOLD 12-23 00:50 → UNDOADMIN 12-23 00:50 → ED HOLD 12-23 00:54 → PCU 3S 12-23 19:57
PROVIDERS: ADMIT Family Medicine; ATTEND Internal Medicine
PROC: 4A02XM4 Measurement of Cardiac Total Activity, External Approach (ICD-10-PCS; principal; 2020-12-25)
PROC: 3E073KZ Introduction of Other Diagnostic Substance into Coronary Artery, Percutaneous Approach (ICD-10-PCS; 2020-12-25)
DX: N17.9 Acute kidney failure, unspecified (principal); I21.A1 Myocardial infarction type 2; I50.33 Acute on chronic diastolic (congestive) heart failure; I13.0 Hypertensive heart and chronic kidney disease with heart failure and stage 1 through stage 4 chronic kidney disease, or unspecified chronic kidney disease; I25.10 Atherosclerotic heart disease of native coronary artery without angina pectoris; F17.210 Nicotine dependence, cigarettes, uncomplicated; N18.9 Chronic kidney disease, unspecified; Z20.822 Contact with and (suspected) exposure to COVID-19; E78.5 Hyperlipidemia, unspecified; F10.20 Alcohol dependence, uncomplicated; K21.9 Gastro-esophageal reflux disease without esophagitis; I73.9 Peripheral vascular disease, unspecified; E03.9 Hypothyroidism, unspecified; Z82.49 Family history of ischemic heart disease and other diseases of the circulatory system; Z90.710 Acquired absence of both cervix and uterus; I25.2 Old myocardial infarction; Z79.899 Other long term (current) drug therapy; Z95.5 Presence of coronary angioplasty implant and graft; Z88.0 Allergy status to penicillin; Z71.41 Alcohol abuse counseling and surveillance of alcoholic; Z71.6 Tobacco abuse counseling; Z79.02 Long term (current) use of antithrombotics/antiplatelets
CPT/HCPCS: 36415; 70450; 71045; 78452; 80053; 80061; 80305; 80320; 81001; 82948; 83605; 83690; 83735; 83880; 84100; 84484; 85007; 85025; 85610; 85730; 87040; 87635; 93005; 93017; 93306; 96365; 97162; 97530; 99285; A9500; G0378; J0280; J1644; J1956; J2785; J3475; J7030